=== PATIENT | female | born 1975 | race Caucasian/White ===

== ENCOUNTER 2017-11-25 10:33 | Outpatient (CLI) | payer MEDICAID ==
[~2017-11-25 10:33] MED LIST: ALBU18HF2 INH; CEPH500C5 PO; DICY10CA88 PO; DOCU-148 PO; FENO48TA15 PO; FEXO-124 PO; INSU100V9 SQ; LURA60TA2 PO; METF500T PO; MOME13HF3 INH; OMEP20TA23 PO; ONDA8TAB6 PO; PREG150C PO; SITA100T11 PO; SUMA25TA35 PO; SYN0.088T PO; TEMA15CA5 PO; TRAZ-146 PO
== END 2017-11-25 23:59 | disposition home or self-care (01) ==
LOC: RAD 10:33
PROVIDERS: ATTEND Physician Assistant Medical
DX: R55 Syncope and collapse (principal); J45.909 Unspecified asthma, uncomplicated; E11.9 Type 2 diabetes mellitus without complications; Z87.891 Personal history of nicotine dependence
CPT/HCPCS: 95816

== ENCOUNTER 2018-04-04 12:04 | Emergency (ER) | payer MEDICAID ==
[~2018-04-04] VITALS: Ht 162.6 cm; Wt 96.0 kg
[~2018-04-04 12:04] MED LIST changes: -TRAZ-146 PO; +TRAZ-219 PO
[2018-04-04 12:15] VITALS: BP 125/76
[2018-04-04] MEDS ORDERED: ketorolac trometh inj. 60 MG/2 ML VIAL IM ONE (12:30)
[2018-04-04] MEDS ORDERED: ONDA4TAB9 PO (13:21)
[2018-04-04] MEDS ORDERED: CYCL-1 PO (13:21)
[2018-04-04] MEDS ORDERED: ondansetron 4mg rapidly disintigrating tab PO ONE (13:25)
== END 2018-04-04 13:29 | disposition home or self-care (01) ==
LOC: ER 12:05
DX: S70.02XA Contusion of left hip, initial encounter (principal); G43.909 Migraine, unspecified, not intractable, without status migrainosus; J45.909 Unspecified asthma, uncomplicated; E11.9 Type 2 diabetes mellitus without complications; M79.7 Fibromyalgia; Z90.710 Acquired absence of both cervix and uterus; Z98.890 Other specified postprocedural states; Z88.8 Allergy status to other drugs, medicaments and biological substances; Z79.899 Other long term (current) drug therapy; Z79.4 Long term (current) use of insulin; W01.198A Fall on same level from slipping, tripping and stumbling with subsequent striking against other object, initial encounter; Y93.89 Activity, other specified; Y92.89 Other specified places as the place of occurrence of the external cause; Y99.9 Unspecified external cause status
CPT/HCPCS: 73521; 96372; 99283; J1885

== ENCOUNTER 2018-05-10 12:30 | Emergency (ER) | payer MEDICAID ==
[~2018-05-10] VITALS: Ht 162.6 cm; Wt 95.9 kg
[~2018-05-10 12:30] MED LIST changes: +CYCL-1 PO
[2018-05-10 12:58] LABS: BASOPHILS % (AUTO) 0.4 % (0-1); EOSINOPHILS # (AUTO) 0.3 X10'3 (0-0.9); EOSINOPHILS % (AUTO) 3.4 % (0-6); HEMATOCRIT 38.2 % (35.0-45.0); HEMOGLOBIN 12.9 g/dl (12.0-16.0); LYMPHOCYTES # (AUTO) 2.2 X10'3 (1.1-4.8); LYMPHOCYTES % (AUTO) 23.7 % (21-51); MEAN CORPUSCULAR HEMOGLOBIN 29.9 PG (27.0-31.0); MEAN CORPUSCULAR HGB CONC 33.6 % (33.0-36.5); MEAN CORPUSCULAR VOLUME 88.8 FL (78-98); MEAN PLATELET VOLUME 6.6 FL (7.4-10.4); MONOCYTES # (AUTO) 0.4 X10'3 (0-0.9); MONOCYTES % (AUTO) 4.7 % (2-12); NEUTROPHILS # (AUTO) 6.3 X10'3 (1.8-7.7); NEUTROPHILS % (AUTO) 67.8 % (42-75); PLATELET COUNT 383 X10'3 (140-440); RED BLOOD COUNT 4.31 X10'6 (4.20-5.60); RED CELL DISTRIBUTION WIDTH 14.4 % (11.5-14.5); WHITE BLOOD COUNT 9.3 X10'3 (4.5-11.0)
[2018-05-10 13:15] LABS: PARTIAL THROMBOPLASTIN TIME 27 SECONDS (22-32); PROTHROMBIN TIME 9.8 SECONDS (9.0-12.0)
[2018-05-10 13:17] LABS: ALBUMIN 2.9 G/DL (3.4-5.0); ANION GAP 10 (8-16); BILIRUBIN,TOTAL 0.3 MG/DL (0.1-1.0); BLOOD UREA NITROGEN 12 MG/DL (7-18); CALCIUM 8.3 MG/DL (8.5-10.1); CHLORIDE 103 MMOL/L (99-107); GLUCOSE 153 MG/DL (70-104); POTASSIUM 4.7 MMOL/L (3.5-5.1); SODIUM 139 MMOL/L (135-145); TOTAL CARBON DIOXIDE 25.6 MMOL/L (24-32); TOTAL PROTEIN 6.6 G/DL (6.4-8.2); eGFR 78 ML/MIN
[2018-05-10 13:18] LABS: ALANINE AMINOTRANSFERASE 41 U/L (12-78); ALBUMIN/GLOBULIN RATIO 0.8 (1.1-1.5); ALKALINE PHOSPHATASE 87 IU/L (46-116); ASPARTATE AMINO TRANSFERASE 14 U/L (10-37)
[2018-05-10] MEDS ORDERED: dexamethasone sod phosphate 10mg/ml inj IV STA (13:29)
[2018-05-10 14:11] VITALS: BP 127/72
== END 2018-05-10 14:14 | disposition home or self-care (01) ==
LOC: ER 12:31
DX: J40 Bronchitis, not specified as acute or chronic (principal); G43.909 Migraine, unspecified, not intractable, without status migrainosus; E11.9 Type 2 diabetes mellitus without complications; Z90.710 Acquired absence of both cervix and uterus; Z98.890 Other specified postprocedural states; F17.210 Nicotine dependence, cigarettes, uncomplicated; Z88.8 Allergy status to other drugs, medicaments and biological substances; Z79.2 Long term (current) use of antibiotics; Z79.84 Long term (current) use of oral hypoglycemic drugs; Z79.4 Long term (current) use of insulin; Z79.899 Other long term (current) drug therapy; Z60.2 Problems related to living alone
CPT/HCPCS: 36415; 71045; 80053; 83880; 84484; 85025; 85610; 85730; 93005; 96374; 99284; J1100

== ENCOUNTER 2018-08-31 14:32 | Emergency (ER) | payer MEDICAID ==
[~2018-08-31] VITALS: Ht 162.6 cm; Wt 89.0 kg
[~2018-08-31 14:32] MED LIST changes: -CEPH500C5 PO; +HYDR-4353 PO
[2018-08-31 14:35] VITALS: BP 121/71
[2018-08-31] MEDS ORDERED: METH4TAB81 PO (16:25)
== END 2018-08-31 16:28 | disposition home or self-care (01) ==
LOC: ER 14:33
DX: J98.01 Acute bronchospasm (principal); G43.909 Migraine, unspecified, not intractable, without status migrainosus; E11.9 Type 2 diabetes mellitus without complications; J45.909 Unspecified asthma, uncomplicated; Z90.710 Acquired absence of both cervix and uterus; Z98.890 Other specified postprocedural states; Z60.2 Problems related to living alone; Z88.8 Allergy status to other drugs, medicaments and biological substances; Z79.4 Long term (current) use of insulin; Z79.84 Long term (current) use of oral hypoglycemic drugs; Z79.899 Other long term (current) drug therapy
CPT/HCPCS: 99283

== ENCOUNTER 2020-12-14 20:54 | Emergency (ER) | payer MEDICAID ==
[~2020-12-14] VITALS: Ht 162.6 cm; Wt 100.0 kg
[~2020-12-14 20:54] MED LIST changes: -HYDR-4353 PO; +LURA60TA PO; -LURA60TA2 PO; +METH4TAB81 PO; -TRAZ-219 PO; +TRAZ-256 PO
[2020-12-14 20:58] VITALS: BP 149/89
== END 2020-12-14 23:54 | disposition home or self-care (01) ==
LOC: ER 20:54
DX: S66.812A Strain of other specified muscles, fascia and tendons at wrist and hand level, left hand, initial encounter (principal); G43.909 Migraine, unspecified, not intractable, without status migrainosus; J45.909 Unspecified asthma, uncomplicated; E11.9 Type 2 diabetes mellitus without complications; Z88.1 Allergy status to other antibiotic agents; Z88.5 Allergy status to narcotic agent; Z88.8 Allergy status to other drugs, medicaments and biological substances; Z79.899 Other long term (current) drug therapy; X58.XXXA Exposure to other specified factors, initial encounter; Y93.89 Activity, other specified; Y92.89 Other specified places as the place of occurrence of the external cause; Y99.8 Other external cause status
CPT/HCPCS: 29125; 73110; 99283

== ENCOUNTER 2021-10-04 16:00 | Emergency (ER) | payer MEDICAID ==
[~2021-10-04] VITALS: Ht 162.6 cm; Wt 93.2 kg
[~2021-10-04 16:00] MED LIST changes: -FEXO-124 PO; +FEXO-271 PO
[2021-10-04 16:18] VITALS: BP 89/56
== END 2021-10-04 17:26 | disposition home or self-care (01) ==
LOC: ER 16:00
DX: R07.89 Other chest pain (principal); G43.909 Migraine, unspecified, not intractable, without status migrainosus; J45.909 Unspecified asthma, uncomplicated; E11.9 Type 2 diabetes mellitus without complications; M79.7 Fibromyalgia; Z90.710 Acquired absence of both cervix and uterus; Z98.890 Other specified postprocedural states; Z79.899 Other long term (current) drug therapy; Z60.2 Problems related to living alone; Z88.1 Allergy status to other antibiotic agents; Z88.8 Allergy status to other drugs, medicaments and biological substances; Z79.4 Long term (current) use of insulin
CPT/HCPCS: 71045; 93005; 99283

== ENCOUNTER 2022-07-03 14:07 | Emergency (ER) | payer MEDICAID ==
[~2022-07-03] VITALS: Ht 165.1 cm; Wt 97.3 kg
[~2022-07-03 14:07] MED LIST changes: -MOME13HF3 INH; +MOME13HF8 INH
[2022-07-03 15:01] LABS: BASOPHILS # (AUTO) 0.1 X10'3 (0-0.2); EOSINOPHILS # (AUTO) 0.3 X10'3 (0-0.9); EOSINOPHILS % (AUTO) 2.6 % (0-6); HEMATOCRIT 40.9 % (35.0-45.0); HEMOGLOBIN 13.1 g/dl (12.0-16.0); LYMPHOCYTES # (AUTO) 2.9 X10'3 (1.1-4.8); LYMPHOCYTES % (AUTO) 21.6 % (21-51); MEAN CORPUSCULAR HEMOGLOBIN 28.3 PG (27.0-31.0); MEAN CORPUSCULAR HGB CONC 32.1 g/dL (33.0-36.5); MEAN CORPUSCULAR VOLUME 88.2 FL (78-98); MEAN PLATELET VOLUME 6.4 FL (7.4-10.4); MONOCYTES # (AUTO) 0.6 X10'3 (0-0.9); MONOCYTES % (AUTO) 4.5 % (2-12); NEUTROPHILS # (AUTO) 9.5 X10'3 (1.8-7.7); NEUTROPHILS % (AUTO) 70.3 % (42-75); PLATELET COUNT 514 X10'3 (140-440); RED BLOOD COUNT 4.64 X10'6 (4.20-5.60); RED CELL DISTRIBUTION WIDTH 15.7 % (11.5-14.5); WHITE BLOOD COUNT 13.5 X10'3 (4.5-11.0)
[2022-07-03 15:02] LABS: CLARITY,URINE CLEAR (Clear); COLOR,URINE YELLOW (Yellow); GLUCOSE, URINE NEGATIVE (Neg); KETONES,URINE NEGATIVE (Neg); LEUKOCYTE ESTERASE ,URINE NEGATIVE (Neg); NITRITES, URINE NEGATIVE (Neg); OCCULT BLOOD,URINE NEGATIVE (Neg); PH,URINE 5.5 (4.8-8.0); PROTEIN,URINE NEGATIVE (Neg); UROBILINOGEN,URINE 0.2 E.U/dL (0.2-1.0)
[2022-07-03 15:03] LABS: UA COLLECTION TYPE CLN CATCH MIDSTREAM; URINE HCG NEGATIVE (NEG)
[2022-07-03 15:30] LABS: ALANINE AMINOTRANSFERASE 12 U/L (12-78); ALBUMIN 2.7 G/DL (3.4-5.0); ALBUMIN/GLOBULIN RATIO 0.6 (1.1-1.5); ALKALINE PHOSPHATASE 142 IU/L (46-116); ANION GAP 8 (8-16); ASPARTATE AMINO TRANSFERASE 7 U/L (10-37); BILIRUBIN,TOTAL 0.3 MG/DL (0.1-1.0); BLOOD UREA NITROGEN 8 MG/DL (7-18); CALCIUM 9.3 MG/DL (8.5-10.1); CHLORIDE 103 MMOL/L (99-107); CREATININE 0.73 MG/DL (0.40-0.90); GLUCOSE 102 MG/DL (70-104); LIPASE 126 U/L (73-393); SODIUM 138 MMOL/L (135-145); TOTAL CARBON DIOXIDE 27.4 MMOL/L (24-32); TOTAL PROTEIN 7.1 G/DL (6.4-8.2); eGFR 85 ML/MIN
[2022-07-03] MEDS ORDERED: ondansetron/PF 4mg/2ml inj IV ONE (17:35)
[2022-07-03] MEDS ORDERED: ketorolac trometh. 30mg/ml inj. IV ONE (17:35)
[2022-07-03] MEDS ORDERED: normal saline 1000ML IV soln IVB ONE (17:35)
[2022-07-03] MEDS ORDERED: morphine 2 MG/ML inj. syringe IV ONE (17:35)
[2022-07-03] MEDS ORDERED: oxyCODONE/APAP 5-325mg tablet PO ONE (21:15)
[2022-07-03] MEDS ORDERED: HYDR-3965 PO (21:23)
[2022-07-03] MEDS ORDERED: ONDA4TAB12 PO (21:23)
[2022-07-03 22:23] VITALS: BP 99/73
== END 2022-07-03 22:26 | disposition home or self-care (01) ==
LOC: ER 14:08
DX: R10.11 Right upper quadrant pain (principal); R11.2 Nausea with vomiting, unspecified; G43.909 Migraine, unspecified, not intractable, without status migrainosus; J45.909 Unspecified asthma, uncomplicated; E11.9 Type 2 diabetes mellitus without complications; F17.210 Nicotine dependence, cigarettes, uncomplicated; M79.7 Fibromyalgia; Z90.710 Acquired absence of both cervix and uterus; Z98.890 Other specified postprocedural states; Z60.2 Problems related to living alone; Z88.1 Allergy status to other antibiotic agents; Z88.8 Allergy status to other drugs, medicaments and biological substances; Z79.84 Long term (current) use of oral hypoglycemic drugs; Z79.899 Other long term (current) drug therapy
CPT/HCPCS: 36415; 74176; 76700; 80053; 81003; 81025; 83690; 84145; 85025; 96361; 96374; 96375; 99285; J1885; J2270; J2405; J7030

== ENCOUNTER 2023-12-21 14:01 | Emergency (ER) | payer MEDICAID ==
[~2023-12-21] VITALS: Ht 162.6 cm; Wt 103.0 kg
[~2023-12-21 14:01] MED LIST changes: +ONDA-243 PO
[2023-12-21 14:46] LABS: BASOPHILS # (AUTO) 0.1 X10'3 (0-0.2); EOSINOPHILS # (AUTO) 0.2 X10'3 (0-0.9); EOSINOPHILS % (AUTO) 1.8 % (0-6); HEMATOCRIT 39.3 % (35.0-45.0); HEMOGLOBIN 12.8 g/dl (12.0-16.0); LYMPHOCYTES # (AUTO) 3.1 X10'3 (1.1-4.8); LYMPHOCYTES % (AUTO) 24.9 % (21-51); MEAN CORPUSCULAR HEMOGLOBIN 28.7 PG (27.0-31.0); MEAN CORPUSCULAR HGB CONC 32.7 g/dL (33.0-36.5); MEAN CORPUSCULAR VOLUME 87.9 FL (78-98); MEAN PLATELET VOLUME 6.5 FL (7.4-10.4); MONOCYTES # (AUTO) 0.5 X10'3 (0-0.9); MONOCYTES % (AUTO) 3.7 % (2-12); NEUTROPHILS # (AUTO) 8.5 X10'3 (1.8-7.7); NEUTROPHILS % (AUTO) 68.6 % (42-75); PLATELET COUNT 513 X10'3 (140-440); RED BLOOD COUNT 4.47 X10'6 (4.20-5.60); RED CELL DISTRIBUTION WIDTH 16.1 % (11.5-14.5); WHITE BLOOD COUNT 12.4 X10'3 (4.5-11.0)
[2023-12-21] MEDS: ketorolac trometh 15mg/ml vial 15 MG/ML ML IV ONE (15:05)
[2023-12-21 15:06] LABS: ALBUMIN 2.5 G/DL (3.4-5.0); ANION GAP 10 (8-16); BLOOD UREA NITROGEN 7 MG/DL (7-18); BUN/CREATININE RATIO 9.1 (10.0-20.0); CALCIUM 8.5 MG/DL (8.5-10.1); CHLORIDE 104 MMOL/L (99-107); CREATININE 0.77 MG/DL (0.40-0.90); GLUCOSE 86 MG/DL (70-104); MAGNESIUM 1.7 MG/DL (1.5-2.4); POTASSIUM 4.2 MMOL/L (3.5-5.1); PRO BRAIN NATRIURETIC PEPTIDE 46 PG/ML (0-125); SODIUM 136 MMOL/L (135-145); TOTAL CARBON DIOXIDE 22.2 MMOL/L (24-32); eCRCL 76 ML/MIN; eGFR 80 ML/MIN
[2023-12-21] MEDS ORDERED: LIDO700A32 TOP (15:46)
[2023-12-21] MEDS ORDERED: CYCL-394 PO (15:46)
[2023-12-21] MEDS: mag hydrox/Alum hydrox/simeth 30ml oral suspension PO ONE (16:16)
[2023-12-21] MEDS: LIDOcaine 2% Viscous 15ml cup MM ONE (16:16)
[2023-12-21 16:22] VITALS: BP 121/58; PULSE 108; RESP 12; TEMP 98.1; O2SAT 97
== END 2023-12-21 16:24 | disposition home or self-care (01) ==
LOC: ER 14:02
DX: R07.89 Other chest pain (principal); G43.909 Migraine, unspecified, not intractable, without status migrainosus; J45.909 Unspecified asthma, uncomplicated; E11.9 Type 2 diabetes mellitus without complications; Z88.1 Allergy status to other antibiotic agents; Z88.8 Allergy status to other drugs, medicaments and biological substances; Z79.899 Other long term (current) drug therapy; Z79.4 Long term (current) use of insulin; Z79.84 Long term (current) use of oral hypoglycemic drugs; Z90.710 Acquired absence of both cervix and uterus
CPT/HCPCS: 36415; 71045; 80048; 83735; 83880; 84484; 85025; 93005; 96374; 99285; J1885

== ENCOUNTER 2024-01-07 21:38 | Emergency (ER) | payer MEDICAID ==
[~2024-01-07] VITALS: Ht 162.6 cm; Wt 105.5 kg
[~2024-01-07 21:38] MED LIST changes: +CYCL-394 PO; +LIDO700A32 TOP
[2024-01-07 22:08] LABS: BASOPHILS # (AUTO) 0.2 X10'3 (0-0.2); BASOPHILS % (AUTO) 1.2 % (0-1); EOSINOPHILS # (AUTO) 0.2 X10'3 (0-0.9); EOSINOPHILS % (AUTO) 1.7 % (0-6); HEMATOCRIT 42.4 % (35.0-45.0); HEMOGLOBIN 13.7 g/dl (12.0-16.0); LYMPHOCYTES # (AUTO) 2.8 X10'3 (1.1-4.8); LYMPHOCYTES % (AUTO) 19.9 % (21-51); MEAN CORPUSCULAR HEMOGLOBIN 28.8 PG (27.0-31.0); MEAN CORPUSCULAR HGB CONC 32.3 g/dL (33.0-36.5); MEAN PLATELET VOLUME 6.1 FL (7.4-10.4); MONOCYTES # (AUTO) 0.6 X10'3 (0-0.9); MONOCYTES % (AUTO) 4.2 % (2-12); NEUTROPHILS # (AUTO) 10.3 X10'3 (1.8-7.7); PLATELET COUNT 446 X10'3 (140-440); RED BLOOD COUNT 4.77 X10'6 (4.20-5.60); RED CELL DISTRIBUTION WIDTH 15.8 % (11.5-14.5); WHITE BLOOD COUNT 14.1 X10'3 (4.5-11.0)
[2024-01-07 22:36] LABS: ALANINE AMINOTRANSFERASE 17 U/L (12-78); ALBUMIN 2.7 G/DL (3.4-5.0); ALBUMIN/GLOBULIN RATIO 0.6 (1.1-1.5); ALKALINE PHOSPHATASE 144 IU/L (46-116); ANION GAP 4 (8-16); ASPARTATE AMINO TRANSFERASE 11 U/L (10-37); BILIRUBIN,TOTAL 0.3 MG/DL (0.1-1.0); BLOOD UREA NITROGEN 8 MG/DL (7-18); BUN/CREATININE RATIO 9.1 (10.0-20.0); CALCIUM 8.8 MG/DL (8.5-10.1); CHLORIDE 104 MMOL/L (99-107); CREATININE 0.88 MG/DL (0.40-0.90); GLUCOSE 189 MG/DL (70-104); LIPASE 40 U/L (16-77); POTASSIUM 4.3 MMOL/L (3.5-5.1); SODIUM 137 MMOL/L (135-145); eCRCL 67 ML/MIN; eGFR 68 ML/MIN
[2024-01-08 01:17] LABS: BILIRUBIN,URINE NEGATIVE (Neg); CLARITY,URINE SLIGHTLY CLOUDY (Clear); COLOR,URINE YELLOW (Yellow); GLUCOSE, URINE NEGATIVE (Neg); KETONES,URINE NEGATIVE (Neg); LEUKOCYTE ESTERASE ,URINE NEGATIVE (Neg); OCCULT BLOOD,URINE NEGATIVE (Neg); PH,URINE 5.5 (4.8-8.0); PROTEIN,URINE NEGATIVE (Neg); UROBILINOGEN,URINE 0.2 E.U/dL (0.2-1.0)
[2024-01-08 01:18] LABS: URINE HCG NEGATIVE (NEG)
[2024-01-08 01:24] LABS: NITRITES, URINE NEGATIVE (Neg); UA COLLECTION TYPE CLN CATCH MIDSTREAM
[2024-01-08 01:32] LABS: HYALINE CASTS 0-3 /LPF (NEGATIVE); MUCUS STRANDS MANY /LPF (Neg); SQUAMOUS EPITHELIAL CELL,UR MANY /LPF (FEW)
[2024-01-08 01:33] LABS: BACTERIA,URINE 1+ /HPF (Neg); RBC,URINE NONE SEEN /HPF (0-2); WBC,URINE 0-4 /HPF (0-4)
[2024-01-08] MEDS ORDERED: OXYC-658 PO (01:54)
[2024-01-08] MEDS ORDERED: ONDA-245 PO (01:54)
[2024-01-08] MEDS: ondansetron 4mg rapidly disintigrating tab PO ONE (01:58)
[2024-01-08] MEDS: oxyCODONE IR 5mg (immed. release) tablet PO ONE (01:59)
[2024-01-08] MEDS: ibuprofen tablet 400 MG TABLET PO ONE (02:00)
--- NOTE | 2024-01-08 02:00 | NUR ---
REYNA GRANADOS ASSESSED PT AT BEDSIDE.
[2024-01-08 02:28] VITALS: BP 95/51; PULSE 90; RESP 16; TEMP 98.1; O2SAT 93
== END 2024-01-08 02:33 | disposition home or self-care (01) ==
LOC: ER 21:39
DX: R10.11 Right upper quadrant pain (principal); G43.909 Migraine, unspecified, not intractable, without status migrainosus; J45.909 Unspecified asthma, uncomplicated; E11.9 Type 2 diabetes mellitus without complications; Z88.1 Allergy status to other antibiotic agents; Z88.8 Allergy status to other drugs, medicaments and biological substances; Z79.899 Other long term (current) drug therapy; Z79.4 Long term (current) use of insulin; Z90.710 Acquired absence of both cervix and uterus
CPT/HCPCS: 36415; 74176; 76700; 80053; 81001; 81025; 83690; 85025; 99284

== ENCOUNTER 2024-01-25 17:32 | Emergency (ER) | payer MEDICAID ==
[~2024-01-25] VITALS: Ht 162.6 cm; Wt 108.0 kg
[~2024-01-25 17:32] MED LIST changes: -CYCL-394 PO; +ONDA-245 PO; +OXYC-658 PO
[2024-01-25 18:00] LABS: BILIRUBIN,URINE NEGATIVE (Neg); CLARITY,URINE CLOUDY (Clear); COLOR,URINE YELLOW (Yellow); GLUCOSE, URINE >=1000 mg/dl (Neg); KETONES,URINE NEGATIVE (Neg); LEUKOCYTE ESTERASE ,URINE NEGATIVE (Neg); NITRITES, URINE NEGATIVE (Neg); OCCULT BLOOD,URINE NEGATIVE (Neg); PROTEIN,URINE NEGATIVE (Neg); UROBILINOGEN,URINE 0.2 E.U/dL (0.2-1.0)
[2024-01-25 18:01] LABS: BASOPHILS # (AUTO) 0.1 X10'3 (0-0.2); BASOPHILS % (AUTO) 0.8 % (0-1); EOSINOPHILS # (AUTO) 0.2 X10'3 (0-0.9); EOSINOPHILS % (AUTO) 0.9 % (0-6); LYMPHOCYTES # (AUTO) 2.3 X10'3 (1.1-4.8); LYMPHOCYTES % (AUTO) 13.4 % (21-51); MEAN CORPUSCULAR HEMOGLOBIN 29.8 PG (27.0-31.0); MEAN CORPUSCULAR HGB CONC 33.3 g/dL (33.0-36.5); MEAN CORPUSCULAR VOLUME 89.3 FL (78-98); MEAN PLATELET VOLUME 6.3 FL (7.4-10.4); MONOCYTES # (AUTO) 0.7 X10'3 (0-0.9); MONOCYTES % (AUTO) 3.9 % (2-12); PLATELET COUNT 540 X10'3 (140-440); WHITE BLOOD COUNT 17.3 X10'3 (4.5-11.0)
[2024-01-25 18:08] LABS: ALANINE AMINOTRANSFERASE 23 U/L (12-78); ALBUMIN 2.8 G/DL (3.4-5.0); ALBUMIN/GLOBULIN RATIO 0.6 (1.1-1.5); ALKALINE PHOSPHATASE 193 IU/L (46-116); ANION GAP 6 (8-16); ASPARTATE AMINO TRANSFERASE 11 U/L (10-37); BILIRUBIN,TOTAL 0.3 MG/DL (0.1-1.0); BLOOD UREA NITROGEN 8 MG/DL (7-18); BUN/CREATININE RATIO 7.7 (10.0-20.0); CALCIUM 8.3 MG/DL (8.5-10.1); CHLORIDE 101 MMOL/L (99-107); CREATININE 1.04 MG/DL (0.40-0.90); GLUCOSE 232 MG/DL (70-104); LIPASE 36 U/L (16-77); POTASSIUM 3.9 MMOL/L (3.5-5.1); SODIUM 135 MMOL/L (135-145); TOTAL CARBON DIOXIDE 28.1 MMOL/L (24-32); TOTAL PROTEIN 7.3 G/DL (6.4-8.2); eCRCL 56 ML/MIN; eGFR 56 ML/MIN
[2024-01-25 18:09] LABS: SQUAMOUS EPITHELIAL CELL,UR MANY /LPF (FEW); UA COLLECTION TYPE CLN CATCH MIDSTREAM; WBC,URINE 0-4 /HPF (0-4)
[2024-01-25 18:12] LABS: BACTERIA,URINE FEW /HPF (Neg)
[2024-01-25 18:13] LABS: RBC,URINE 0-2 /HPF (0-2); YEAST MANY /HPF (NEGATIVE)
[2024-01-25] MEDS: normal saline 1000ml 1,000 ML IV ONE (20:28)
[2024-01-25 22:52] VITALS: BP 112/69; PULSE 97; RESP 16; TEMP 98.6; O2SAT 97
== END 2024-01-25 22:54 | disposition home or self-care (01) ==
LOC: ER 17:33
DX: E11.65 Type 2 diabetes mellitus with hyperglycemia (principal); R10.84 Generalized abdominal pain; G43.909 Migraine, unspecified, not intractable, without status migrainosus; J45.909 Unspecified asthma, uncomplicated; M79.7 Fibromyalgia; Z88.1 Allergy status to other antibiotic agents; Z88.8 Allergy status to other drugs, medicaments and biological substances; Z79.899 Other long term (current) drug therapy; Z79.4 Long term (current) use of insulin; Z79.84 Long term (current) use of oral hypoglycemic drugs; Z79.52 Long term (current) use of systemic steroids; Z90.710 Acquired absence of both cervix and uterus; Z98.890 Other specified postprocedural states; Z60.2 Problems related to living alone
CPT/HCPCS: 36415; 80053; 81001; 82948; 83690; 85025; 96360; 99283; J7030

== ENCOUNTER 2024-10-16 13:50 | Inpatient (IN) | payer MEDICAID ==
[~2024-10-16] VITALS: Ht 162.6 cm; Wt 109.1 kg
[~2024-10-16 13:50] MED LIST changes: +LIDO-52 TOP; -LIDO700A32 TOP; -OXYC-658 PO
--- NOTE | 2024-10-16 13:57 | ELECTROCARDIOGRAPH REPORT ---
[facility] Test Date: 2024-10-16 Test Time: 13:55:32 Pat Name: BERNADETTE BLAND Department: EMERGENCY ROOM Room: Gender: F [employer] [facility] Consultant: JAVED : 1975 Requested By: LUBA MALDONADO Order Number: [id number] Reading MD: Measurements Intervals [place] Rate: 81 P: -2 AR: 129 QRS: 18 QRSD: 99 T: 28 QT: 401 QTc: 466 Interpretive Statements Sinus rhythm Please click the below link to view image of tracing.
--- NOTE | 2024-10-16 14:28 | RADIOLOGY REPORT ---
DI CHEST,SINGLE VIEW, HISTORY: CP COMPARISON: DI CHEST,SINGLE VIEW on DOS: 12/21/23, CHEST,SINGLE VIEW on DOS: 10/04/21 DI CHEST,SINGLE VIEW on DOS: 12/21/23, CHEST,SINGLE VIEW on DOS: 10/04/21 TECHNICAL DATA: 1 view of the chest was obtained. FINDINGS: Lines and tubes: None Cardiomediastinal silhouette: normal Pulmonary vasculature: normal Lung expansion: normal Lung airspace: normal Lung interstitium: normal Pleura: normal Pneumothorax: no Bones: Unremarkable Other: no IMPRESSION: No acute intrathoracic abnormality.
--- NOTE | 2024-10-16 14:33 | Physician Documentation ---
History of Present Illness General Chief Complaint: Chest Pain Stated Complaint: CP Time Seen by MD: 14:13 Primary Medical Doctor: [facility] Mode of Arrival: EMS History of Present Illness Initial Comments Patient is a 49-year-old female with no significant past medical history who presents with a chest pain that began around noon today. The patient reports that she was lying on the couch watching television. The pain is central but sometimes radiates into her arms. She has no shortness of breath. The patient quit smoking about a month ago. Medication Reconciliation Allergies: Coded Allergies: cephalexin (Verified Allergy, Severe, rash, 01/25/24) chlorhexidine (Verified Allergy, Unknown, 01/25/24) promethazine (Verified Allergy, Unknown, 01/25/24) Uncoded Allergies: CLINDAMYCIN (Allergy, Severe, 07/03/22) throat swelling Scheduled Albuterol Sulfate (Ventolin Hfa), 2 PUFFS INH Q4HPRN, (Reported) Cyclobenzaprine* (Cyclobenzaprine*), 1 TAB PO TID Docusate Sodium (Colace), 1 TAB PO DAILY, (Reported) Fenofibrate Nanocrystallized* (Tricor*), 200 MG PO DAILY, (Reported) Fexofenadine Hcl* (Domonique*), 1 TABLET PO DAILY, (Reported) Insulin Glargine,Hum.rec.anlog (Lantus), 80 UNIT SQ HS, (Reported) Levothyroxine Sodium* (Synthroid*), 50 MCG PO DAILY, (Reported) Lidocaine (Lidoderm), 1 PATCH TOP DAILY Lurasidone HCl (Latuda), 1 TAB PO DAILY, (Reported) Metformin Hcl* (Glucophage*), 2 TAB PO BIDAC, (Reported) Methylprednisolone (Medrol Dosepak), 4 MG PO DAILY Mometasone Furoate (Asmanex Hfa), 2 PUFFS INH BID, (Reported) Omeprazole Magnesium (Prilosec Otc), 20 MG PO DAILY Ondansetron 8mg ODT (Ondansetron Odt), 1 TAB PO Q6H Pregabalin (Lyrica), 1 CAP PO TID, (Reported) Sitagliptin Phosphate (Januvia), 1 TAB PO DAILY, (Reported) Temazepam (Restoril), 30 MG PO HS, (Reported) Trazodone HCl (Trazodone HCl), 2 TAB PO HS, (Reported) Scheduled PRN Dicyclomine Hcl* (Bentyl*), 2 CAP PO Q6H PRN for ABDOMINAL PAIN, (Reported) ONDANSETRON ODT 4mg tablet (Ondansetron Odt), 1 TABLET PO Q6H PRN for nausea/vomiting Ondansetron Hcl (Zofran), 1 TAB PO Q8H PRN for nausea/vomiting, (Reported) Sumatriptan Succinate* (Imitrex Tab*), 4 TAB PO PRN PRN for headache, (Reported) Past Medical History Past Medical History: Migraine, Asthma, Diabetes, Fibromyalgia Past Surgical History: abdominal surgery, hysterectomy, orthopedic surgeries, other Other Past Surgical History: Breast Reduction Smoking: Cigarettes Alcohol Use: Rarely Drug Use: none Lives with: Alone Lives In: Home Review of Systems ROS Constitutional: Denies chills, fatigue, fever, weight gain or weight loss. HEENT: Denies hearing loss, sinus pressure or visual changes. Respiratory: Denies cough, shortness of breath or wheezing. Cardiovascular: Central chest pain not associated with movement. Gastrointestinal: Denies abdominal pain, blood in stool, constipation, diarrhea, heartburn, loss of appetite, nausea or vomiting. Genitourinary: Denies painful urination (dysuria), excessive amount of urine (polyuria) or urinary frequency. Metabolic/Endocrine: Denies cold intolerance, heat intolerance, excessive thirst (polydipsia) or excessive hunger (polyphagia). Neurological: Denies dizziness, extremity numbness, extremity weakness, headaches, seizures or tremors. Psychiatric: Denies anxiety or depression. Integumentary: Denies breast discharge, breast lump, hives, mole change(s), rash or skin lesion. Musculoskeletal: Denies back pain, joint pain, joint swelling or neck pain. Hematologic: Denies easily bleeding, easily bruises, lymphedema or issues with blood clots. Immunologic: Denies food allergies or seasonal allergies. Physical Exam Physical Exam Vital Signs: Temperature: 98.5, Heart Rate: 85, Respiratory Rate: 28, BP: 97/51, Pulse Oximetry: 96, Weight: 109.090 Oxygen Flow Rate: 0 Physical Exam Physical Exam Vitals and nursing note reviewed. Constitutional: General: Patient is awake, alert, oriented x 4 in no acute distress and well appearing. Speech is clear and lucid. Appearance: Overweight. Patient is not ill-appearing, toxic-appearing or diaphoretic. HENT: Head: Normocephalic and atraumatic. Mouth/Throat: Mouth: Mucous membranes are moist. Pharynx: Oropharynx is clear. Eyes: General: No scleral icterus. Extraocular Movements: Extraocular movements intact. Pupils: Pupils are equal, round, and reactive to light. Cardiovascular: Rate and Rhythm: Normal rate and regular rhythm. Heart sounds: No murmur heard. Pulmonary: Effort: No respiratory distress. Breath sounds: No wheezing, rhonchi or rales. Abdominal: General: There is no distension. Palpations: There is no fluid wave, hepatomegaly or mass. Tenderness: There is no abdominal tenderness. There is no guarding. Musculoskeletal: General: No swelling or deformity. Skin: Coloration: Skin is not jaundiced. Findings: No erythema or rash. Neurological: Mental Status: Patient is alert. Progress Results/Orders Results/Orders Orders - LUBA MALDONADO MD Chest,Single View (10/16/24 13:54) Monitor (10/16/24 13:54) Saline Lock (10/16/24 13:54) Oxygen (10/16/24 13:54) Hs Troponin I W Calculations (10/16/24 15:54) Hs Troponin I W Calculations (10/16/24 16:54) Nitroglycerin Sublingual Tab (Nitrostat (10/16/24 15:05) Page Hospitalist (10/16/24 15:07) Completed Orders - LUBA MALDONADO MD Chest,Single View (10/16/24 13:54) Cbc/Diff (10/16/24 13:54) BMP (10/16/24 13:54) PBNP (10/16/24 13:54) Electrocardiogram (10/16/24 13:54) Hs Troponin I W Calculations (10/16/24 13:54) Ua W/Microscopic, Cult If Ind (10/16/24 14:43) Vital Signs 10/16/24 10/16/24 10/16/24 13:54 14:05 15:05 Temp 98.5 Pulse 85 85 Resp 16 28 17 B/P (MAP) 97/51 114/74 (87) Pulse Ox 96 95 O2 Flow Rate 0 0 Laboratory Tests Test 10/16/24 14:03 10/16/24 14:08 10/16/24 14:43 White Blood Count 9.6 Red Blood Count 4.34 Hemoglobin 13.1 Hematocrit 38.8 Mean Corpuscular Volume 89.4 Mean Corpuscular Hemoglobin 30.2 Mean Corpuscular Hemoglobin Concent 33.8 Red Cell Distribution Width 15.1 H Platelet Count 423 Mean Platelet Volume 6.8 L Neutrophils (%) (Auto) 69.3 Lymphocytes (%) (Auto) 23.0 Monocytes (%) (Auto) 4.2 Eosinophils (%) (Auto) 2.8 Basophils (%) (Auto) 0.7 Neutrophils # (Auto) 6.7 Lymphocytes # (Auto) 2.2 Monocytes # (Auto) 0.4 Eosinophils # (Auto) 0.3 Basophils # (Auto) 0.1 CBC Comment Sodium Level 138 Potassium Level 4.4 Chloride Level 103 Carbon Dioxide Level 22.9 L Anion Gap 12 Blood Urea Nitrogen 13 Creatinine 0.95 H Estimated GFR/1.73 m2 62 BUN/Creatinine Ratio 13.7 Glucose Level 262 H Calcium Level 8.6 Pro-B-Type Natriuretic Peptide < 30 Albumin 2.8 L Chemistry Comments Troponin I High Sensitivity 4 Urine Specimen Description Cln catch midstream Urine Color Sameera Urine Clarity Clear Urine pH Urine Specific [place]ham Urine Protein Urine Glucose (UA) Urine Ketones Urine Occult Blood Urine Nitrite Urine Bilirubin Urine Urobilinogen Urine Leukocyte Esterase Urine RBC None seen Urine WBC 0-4 Urine Squamous Epithelial Cells Moderate Urine Bacteria 1+ Urine Mucus None seen Urine Culture Indicated Not ind Volume Urine Centrifuged 10 ml Urine Comment See note Departure Disposition: 09 ADMITTED INPATIENT Admitted to Inpatient Unit: to hospitalist Admission Level of Care: Med/Surg with Tele Impression: Primary Impression: Chest pain Condition: Stable Referrals: NO PRIMARY CARE PROVIDER (PCP) Signature Scribe Signature: . Attestation: . LUBA MALDONADO MD Oct 16, 2024 14:33
[2024-10-16 14:40] LABS: BASOPHILS # (AUTO) 0.1 X10'3 (0-0.2); BASOPHILS % (AUTO) 0.7 % (0-1); EOSINOPHILS # (AUTO) 0.3 X10'3 (0-0.9); EOSINOPHILS % (AUTO) 2.8 % (0-6); HEMATOCRIT 38.8 % (35.0-45.0); HEMOGLOBIN 13.1 g/dl (12.0-16.0); LYMPHOCYTES # (AUTO) 2.2 X10'3 (1.1-4.8); MEAN CORPUSCULAR HEMOGLOBIN 30.2 PG (27.0-31.0); MEAN CORPUSCULAR HGB CONC 33.8 g/dL (33.0-36.5); MEAN CORPUSCULAR VOLUME 89.4 FL (78-98); MEAN PLATELET VOLUME 6.8 FL (7.4-10.4); MONOCYTES # (AUTO) 0.4 X10'3 (0-0.9); MONOCYTES % (AUTO) 4.2 % (2-12); NEUTROPHILS # (AUTO) 6.7 X10'3 (1.8-7.7); NEUTROPHILS % (AUTO) 69.3 % (42-75); PLATELET COUNT 423 X10'3 (140-440); RED BLOOD COUNT 4.34 X10'6 (4.20-5.60); RED CELL DISTRIBUTION WIDTH 15.1 % (11.5-14.5); WHITE BLOOD COUNT 9.6 X10'3 (4.5-11.0)
[2024-10-16 14:47] LABS: ALBUMIN 2.8 G/DL (3.4-5.0); ANION GAP 12 (8-16); BLOOD UREA NITROGEN 13 MG/DL (7-18); BUN/CREATININE RATIO 13.7 (10.0-20.0); CALCIUM 8.6 MG/DL (8.5-10.1); CHLORIDE 103 MMOL/L (99-107); CREATININE 0.95 MG/DL (0.40-0.90); GLUCOSE 262 MG/DL (70-104); POTASSIUM 4.4 MMOL/L (3.5-5.1); PRO BRAIN NATRIURETIC PEPTIDE < 30 PG/ML (0-125); SODIUM 138 MMOL/L (135-145); TOTAL CARBON DIOXIDE 22.9 MMOL/L (24-32); eCRCL 61 ML/MIN; eGFR 62 ML/MIN
[2024-10-16 14:53] LABS: CLARITY,URINE CLEAR (Clear); COLOR,URINE AMBER (Yellow)
[2024-10-16 14:55] LABS: UA COLLECTION TYPE CLN CATCH MIDSTREAM
[2024-10-16 15:00] LABS: BACTERIA,URINE 1+ /HPF (Neg); RBC,URINE NONE SEEN /HPF (0-2); WBC,URINE 0-4 /HPF (0-4)
[2024-10-16 15:01] LABS: MUCUS STRANDS NONE SEEN /LPF (Neg); SQUAMOUS EPITHELIAL CELL,UR MODERATE /LPF (FEW)
[2024-10-16] MEDS ORDERED: nitroGLYCERIN 0.4mg SUBLingual tab SL PRN ×2 (15:05→15:30)
[2024-10-16] MEDS ORDERED: HYDROcodone/acetaminophen 10/325mg tab PO PRN (15:30)
[2024-10-16] MEDS ORDERED: dextrose 50%-water 50ml dispensing syringe IV PRN ×2 (15:30)
[2024-10-16] MEDS ORDERED: ondansetron/PF 4mg/2ml inj IV PRN (15:30)
[2024-10-16] MEDS ORDERED: magnesium hydroxide 30ml (MOM) UD suspension PO PRN (15:30)
[2024-10-16] MEDS ORDERED: aminophylline 500mg/20ml vial IV PRN (15:30)
[2024-10-16] MEDS ORDERED: regadenoson 0.4mg/5ml syringe IV PRN (15:30)
[2024-10-16] MEDS ORDERED: potassium Cl 40MEQ/1/2NS 520ml 520 ML IV PRN (15:30)
[2024-10-16] MEDS ORDERED: glucagon, human recombinant 1mg kit SUBCUT PRN (15:30)
[2024-10-16] MEDS ORDERED: magnesium sulf-water 2g/50mL 50 ML IV PRN (15:30)
[2024-10-16] MEDS ORDERED: mag hydrox/Alum hydrox/simeth 30ml oral suspension PO PRN (15:30)
[2024-10-16] MEDS ORDERED: DEXTROSE 15 GM of carb/4 tabs (each vial/BOTTLE has 4 tablets) PO PRN ×2 (15:30)
[2024-10-16] MEDS ORDERED: magnesium sulf-water 4G/100mL 100 ML IV PRN (15:30)
[2024-10-16] MEDS ORDERED: HYDROcodone/acetaminophen 5mg/325mg tablet PO PRN (15:30)
[2024-10-16] MEDS ORDERED: metoprolol tartrate 1mg/ml inj IV PRN (15:30)
[2024-10-16] MEDS ORDERED: acetaminophen 325mg tablet PO PRN ×2 (15:30)
[2024-10-16] MEDS ORDERED: potassium Cl 20 mEq SR tablet PO PRN ×2 (15:30)
[2024-10-16] MEDS: PERFLUTREN PROTEIN-A MICROSPHR (Optison) 0.22 MG/ML 3ML VIAL IV ONE (15:57)
[2024-10-16 16:21] LABS: HEMOGLOBIN A1C 10.7 % (4.5-6.2)
[2024-10-16] MEDS ORDERED: INSU200I4 SQ (16:24)
[2024-10-16] MEDS ORDERED: GLUC3SPR5 (16:24)
[2024-10-16] MEDS ORDERED: ATOR-2 PO (16:24)
[2024-10-16] MEDS ORDERED: FERR325T34 (16:24)
[2024-10-16] MEDS ORDERED: FLUT1BLS16 INH (16:24)
[2024-10-16] MEDS ORDERED: INSU100I39 SQ (16:24)
[2024-10-16] MEDS ORDERED: MONT-40 PO (16:24)
[2024-10-16] MEDS ORDERED: DULO60CA65 PO (16:24)
[2024-10-16] MEDS ORDERED: PROG200C11 PO (16:24)
[2024-10-16] MEDS ORDERED: MEDR5TAB4 PO (16:24)
[2024-10-16] MEDS ORDERED: ATOG60TA PO (16:24)
[2024-10-16] MEDS ORDERED: LISI10TA27 PO (16:24)
[2024-10-16] MEDS ORDERED: OLAN5TAB75 (16:24)
[2024-10-16] MEDS ORDERED: IBUP-1986 PO (16:24)
[2024-10-16] MEDS ORDERED: RIZA10TA28 PO (16:24)
[2024-10-16] MEDS ORDERED: DOXY1TAB3 PO (16:24)
[2024-10-16] MEDS ORDERED: FLUTICASONE (16:24)
[2024-10-16] MEDS ORDERED: DOXY-224 PO (16:24)
[2024-10-16] MEDS: INSULIN LISPRO 100 UNIT/ML INSULN.PEN MULTI-DOSE SQ SCH (17:00)
--- NOTE | 2024-10-16 17:32 | HISTORY AND PHYSICAL ---
History & Physical Providers to CC ~ History of Present Illness Reason for Admit\Complaint: Chest pain evaluate for mi History of Present Illness This is a 49-year-old female who presents to ED with chief complaint of chest pain that began around noon. Patient was sitting on her couch watching TV and was planning to go to work when she developed chest pain that was substernal as 8/10 and radiating to her upper extremities bilaterally with paresthesias in her left hand. The patient is mildly short of breath with the chest pain denies any diaphoresis is nauseated. Note the patient had coffee a proximally 2 hours prior to onset of the chest pain-high sensitivity troponins x2 are at a level of for which greater than 50 the cutoff for normal sensitivity troponin. EKG was negative for any ST segment abnormalities questionable bundle-branch block in the anterior leads Echocardiogram is ordered and Lexiscan stress test- admitted to the ortho floor on electronic device monitor. Allergies: Coded Allergies: cephalexin (Verified Allergy, Severe, rash, 01/25/24) chlorhexidine (Verified Allergy, Unknown, 01/25/24) promethazine (Verified Allergy, Unknown, 01/25/24) Uncoded Allergies: CLINDAMYCIN (Allergy, Severe, 07/03/22) throat swelling Home Medications Home Medications Active Lidoderm (Lidocaine) 5 % Adh..patch 1 Patch TOP DAILY 30 Days may wear up to 12 hours Ondansetron Odt (Ondansetron HCl) 4 Mg Tab.rapdis 1 Tablet PO Q6H PRN Cyclobenzaprine* (Cyclobenzaprine HCl) 10 Mg Tablet 1 Tab PO TID Prilosec Otc (Omeprazole Magnesium) 20 Mg Tablet.dr 20 Mg PO DAILY Reported Baqsimi (Glucagon) 3 Mg/Actuation Beulah Admelog Solostar (Insulin Lispro) 100 Unit/Ml Insuln.pen SQ Tresiba Flextouch U-200 (Insulin Degludec) 200 Unit/Ml (3 Ml) Insuln.pen SQ Rizatriptan (Rizatriptan Benzoate) 10 Mg Tablet 1 Tab PO PRN Ibuprofen 800 Mg Tablet 1 Tab PO TID Carlos Alberto Carbajal 10-10 mg Tablet (Doxylamine/Pyridoxine HCl) 10 Mg-10 Mg Tablet.dr 2 Tab PO HS Doxycycline Hyclate 100 Mg Capsule 1 Cap PO DAILY Olanzapine 5 Mg Tablet Lisinopril 10 Mg Tablet 1 Tab PO DAILY Montelukast Sodium 10 Mg Tablet 1 Tab PO Progesterone (Progesterone,Micronized) 200 Mg Capsule 1 Cap PO HS Atorvastatin Calcium 80 Mg Tablet 1 Tab PO DAILY [Fluticasone] Spr 50 Mcg Trelegy Ellipta 200-62.5-25 (Fluticasone/Umeclidin/Vilanter) 200-62.5 Blst.w.dev 1 Puffs INH DAILY Qulipta (Atogepant) 60 Mg Tablet 1 Tab PO DAILY Medroxyprogesterone Acetate (Medroxyprogesterone Acet) 5 Mg Tablet 1 Tab PO DAILY Ferrous Sulfate 325 Mg (65 Mg Iron) Tablet Duloxetine HCl 60 Mg Capsule.dr 2 Cap PO DAILY Bentyl* (Dicyclomine HCl) 10 Mg Capsule 2 Cap PO Q6H PRN Lyrica (Pregabalin) 150 Mg Capsule 1 Cap PO TID Domonique* (Fexofenadine HCl) 180 Mg Tablet 1 Tablet PO DAILY Januvia (Sitagliptin Phosphate) 100 Mg Tablet 1 Tab PO DAILY Synthroid* (Levothyroxine Sodium) 88 Mcg Tablet 50 Mcg PO DAILY Ventolin Hfa (Albuterol Sulfate) 18 Gm Hfa.aer.ad 2 Puffs INH Q4HPRN Colace (Docusate Sodium) 100 Mg Capsule 1 Tab PO DAILY Past Medical History Past Medical History GERD, hyperlipidemia, [id number] diabetes mellitus, diabetic gastroparesis (the patient is scheduled for surgery once she obtains cardiac clearance), fibromyalgia, hypothyroidism, asthma, migraine headaches Past Surgical History Surgical History Comment Breast reduction, ankle surgery for ankle instability, bilateral knee arthroplasty, lumbar spine surgery, left-sided oophorectomy for ovarian cyst Family History Family History: FH: diabetes mellitus MOTHER Maternal grandmother maternal grandfatheR FH: heart disease Maternal grandmother maternal grandfatheR Past Social History Social History Comment Quit smoking cigarettes one month ago, rare alcohol intake, occasional marijuana usage, denies any illicit drug use. Full code status ROS ROS Except for positives in the HPI the rest of the 14 point review systems is negative Exam Vitals: Vital Signs Date Time Temp Pulse Resp B/P (MAP) Pulse Ox O2 Delivery O2 Flow Rate FiO2 10/16/24 15:05 85 17 114/74 (87) 95 0 10/16/24 13:54 98.5 General: Gen. No acute distress alert and oriented 4 Lungs clear to ascultation bilaterally, no wheezes rales or rhonchi appreciated Heart normal sinus rhythm no murmurs rubs or clicks noted Abdomen soft pkgp-yd-drubfzdz epigastric tenderness bowel sounds are normoactive Lower extremities no clubbing cyanosis, nor edema appreciated bilaterally Diagnostic Data Last Recorded Lab Results: 10/16/24 1403 10/16/24 1403 Advance Care Planning Advanced Care plannin - 30 Minutes Problems: (1) Chest pain Status: Acute Additional Plan # chest pain evaluate for ME Awaiting echocardiogram Lexiscan stress test is ordered for the a.m. Serial troponins 1st who of which are well within normal limits Admitted to ortho floor on a electronic device monitor # vbu-tshhbac-bopyejnrw diabetes mellitus Hyper and hypoglycemic protocol # hypothyroidism awaiting med reconciliation # GERD Protonix #HLD Awaiting med reconciliation # diabetic gastroparesis Anticipating surgery in the near future # DVT prophylaxis SCDs and SQ Lovenox I spent a total of 17 minutes on reviewing various resuscitative measures/ ACP with the patient at the time of admission. The patient has decided on full code status Date of Service: Oct 16, 2024 Billing Provider: ANTONI BOBO DO Common Visit Codes: [id number] INP/OBS CARE (HIGH) Secondary Visit Codes: [id number]-[id number] CARE PLAN 30 MINUTES ANTONI BOBO DO Oct 16, 2024 17:32
[2024-10-16 19:02] VITALS: BP 112/46; PULSE 83; RESP 20; TEMP 97.9; O2SAT 99
[2024-10-16] MEDS: K and/or MAG REPLACEMENT MC SCH (20:00)
[2024-10-16] MEDS: enoxaparin 40mg/0.4ml syringe SQ SCH (21:10)
[2024-10-16] MEDS: docusate sod 100mg capsule PO SCH (21:10)
[2024-10-16 22:00] VITALS: BP 104/62; PULSE 92; RESP 16; TEMP 98.5; O2SAT 94
[2024-10-16] MEDS: OLANZapine 2.5MG tablet PO SCH (22:08)
[2024-10-17 06:00] VITALS: BP 90/43; PULSE 85; RESP 16; TEMP 97.3; O2SAT 94
[2024-10-17 06:21] LABS: BASOPHILS # (AUTO) 0.1 X10'3 (0-0.2); BASOPHILS % (AUTO) 0.7 % (0-1); EOSINOPHILS # (AUTO) 0.4 X10'3 (0-0.9); EOSINOPHILS % (AUTO) 3.8 % (0-6); HEMATOCRIT 37.1 % (35.0-45.0); HEMOGLOBIN 12.5 g/dl (12.0-16.0); LYMPHOCYTES # (AUTO) 2.5 X10'3 (1.1-4.8); LYMPHOCYTES % (AUTO) 25.5 % (21-51); MEAN CORPUSCULAR HEMOGLOBIN 30.4 PG (27.0-31.0); MEAN CORPUSCULAR HGB CONC 33.8 g/dL (33.0-36.5); MEAN CORPUSCULAR VOLUME 89.9 FL (78-98); MEAN PLATELET VOLUME 6.6 FL (7.4-10.4); MONOCYTES # (AUTO) 0.5 X10'3 (0-0.9); MONOCYTES % (AUTO) 5.6 % (2-12); NEUTROPHILS # (AUTO) 6.3 X10'3 (1.8-7.7); NEUTROPHILS % (AUTO) 64.4 % (42-75); PLATELET COUNT 407 X10'3 (140-440); RED BLOOD COUNT 4.12 X10'6 (4.20-5.60); RED CELL DISTRIBUTION WIDTH 15.1 % (11.5-14.5); WHITE BLOOD COUNT 9.7 X10'3 (4.5-11.0)
[2024-10-17 06:55] LABS: ALANINE AMINOTRANSFERASE 29 U/L (12-78); ALBUMIN 2.6 G/DL (3.4-5.0); ALBUMIN/GLOBULIN RATIO 0.7 (1.1-1.5); ALKALINE PHOSPHATASE 136 IU/L (46-116); ANION GAP 6 (8-16); ASPARTATE AMINO TRANSFERASE 23 U/L (10-37); BILIRUBIN,TOTAL 0.5 MG/DL (0.1-1.0); BLOOD UREA NITROGEN 10 MG/DL (7-18); BUN/CREATININE RATIO 12.3 (10.0-20.0); CALCIUM 8.6 MG/DL (8.5-10.1); CHLORIDE 108 MMOL/L (99-107); CREATININE 0.81 MG/DL (0.40-0.90); GLUCOSE 109 MG/DL (70-104); MAGNESIUM 2.1 MG/DL (1.5-2.4); POTASSIUM 3.9 MMOL/L (3.5-5.1); SODIUM 143 MMOL/L (135-145); TOTAL CARBON DIOXIDE 28.8 MMOL/L (24-32); TOTAL PROTEIN 6.3 G/DL (6.4-8.2); eCRCL 72 ML/MIN; eGFR 75 ML/MIN
[2024-10-17] MEDS: pantoprazole 40mg Tablet.DR PO SCH (07:36)
[2024-10-17 10:00] VITALS: BP 97/52; PULSE 85; RESP 19; TEMP 98.1; O2SAT 94
[2024-10-17] MEDS ORDERED: nitroGLYCERIN 0.4mg SUBLingual tab SL PRN (11:10)
--- NOTE | 2024-10-17 20:04 | DISCHARGE SUMMARY ---
Discharge Summary Providers to CC ~ Discharge Summary Admission Diagnosis: Chest pain eval for ID Hospital Course DATE OF ADMISSION: 10/16/2024 DATE OF DISCHARGE: 10/17/2024 Discharge Diagnosis\Comment: Chest pain eval for ID, [id number] diabetes mellitus, hypothyroidism, GERD, hyperlipidemia, gastroparesis Operations\Procedures: None Consultants: None Complications: None Condition on DC: Unstable (Unknown the patient left AMA) Discharge Summary: I admitted Ms. Blair with the following HPI:This is a 49-year-old female who presents to ED with chief complaint of chest pain that began around noon. Patient was sitting on her couch watching TV and was planning to go to work when she developed chest pain that was substernal as 8/10 and radiating to her upper extremities bilaterally with paresthesias in her left hand. The patient is mildly short of breath with the chest pain denies any diaphoresis is nauseated. Note the patient had coffee a proximally 2 hours prior to onset of the chest pain-high sensitivity troponins x2 are at a level of for which greater than 50 the cutoff for normal sensitivity troponin. EKG was negative for any ST segment abnormalities questionable bundle-branch block in the anterior leads Echocardiogram is ordered and Lexiscan stress test- admitted to the ortho floor on strip tank tender. I evaluated the patient is on the morning of the and the patient is that is time was experiencing chest pain not as intense as that would brought her to the hospital I ordered nitroglycerin the and I informed the patient that the patient could have a stress test tomorrow morning as the radiotracer for the stress test is not available today I was informed approximately 30 minutes later that the patient wanted to leave AMA and the patient left AMA prior to receiving her echocardiogram and as per above did not receive her Lexiscan stress test. Patient has uncontrolled diabetes mellitus her hemoglobin A1c is 10.7 the patient's blood sugar last evening was 200 however this morning was 87 she was on the hyper and hypoglycemic protocol. Gen. No acute distress alert and oriented 4 Lungs clear to ascultation bilaterally, no wheezes rales or rhonchi appreciated Heart normal sinus rhythm no murmurs rubs or clicks noted Abdomen soft nontender bowel sounds are normoactive Lower extremities no clubbing cyanosis, nor edema appreciated bilaterally Note that the patient was not discharged she left AMA at 11:37 *Problems/Diagnosis: (1) Chest pain Status: Acute Total Time Spent on D/C: Up to 30 Minutes Date of Service: Oct 17, 2024 Billing Provider: ANTONI BOBO DO Common Visit Codes: [id number] INP/OBS CARE(HIGH) ANTONI BOBO DO Oct 17, 2024 20:04
== END 2024-10-17 11:37 | disposition left against medical advice (07) | DRG 203 ==
LOC: ER 13:50 → ED HOLD 15:34 → ORTHO 4S 19:07
PROVIDERS: ADMIT Family Medicine; ATTEND Family Medicine
DX: R07.89 Other chest pain (principal); E11.43 Type 2 diabetes mellitus with diabetic autonomic (poly)neuropathy; K31.84 Gastroparesis; E03.9 Hypothyroidism, unspecified; K21.9 Gastro-esophageal reflux disease without esophagitis; E78.5 Hyperlipidemia, unspecified; Z96.653 Presence of artificial knee joint, bilateral; G43.909 Migraine, unspecified, not intractable, without status migrainosus; M79.7 Fibromyalgia; E11.9 Type 2 diabetes mellitus without complications; Z53.29 Procedure and treatment not carried out because of patient's decision for other reasons; J45.909 Unspecified asthma, uncomplicated; Z82.49 Family history of ischemic heart disease and other diseases of the circulatory system; Z87.891 Personal history of nicotine dependence; Z79.84 Long term (current) use of oral hypoglycemic drugs; Z83.3 Family history of diabetes mellitus; Z88.1 Allergy status to other antibiotic agents; Z90.710 Acquired absence of both cervix and uterus
CPT/HCPCS: 36415; 71045; 80048; 80053; 81001; 82948; 83036; 83735; 83880; 84484; 85025; 87081; 93005; 96372; 99285; G0378; J1650; J1815

== ENCOUNTER 2025-02-23 14:38 | Emergency (ER) | payer MEDICAID ==
[~2025-02-23] VITALS: Ht 162.6 cm; Wt 118.6 kg
[~2025-02-23 14:38] MED LIST changes: +ATOG60TA PO; +ATOR-2 PO; +DOXY-224 PO; +DOXY1TAB3 PO; +DULO60CA65 PO; -FENO48TA15 PO; +FERR325T34; -FEXO-271 PO; +FEXO-404 PO; +FLUT1BLS16 INH; +FLUTICASONE; +GLUC3SPR5; +IBUP-1986 PO; +INSU100I39 SQ; -INSU100V9 SQ; +INSU200I4 SQ; +LISI10TA27 PO; -LURA60TA PO; +MEDR5TAB4 PO; -METF500T PO; -METH4TAB81 PO; -MOME13HF8 INH; +MONT-40 PO; +OLAN5TAB75; -ONDA-245 PO; -ONDA8TAB6 PO; +PROG200C11 PO; +RIZA10TA28 PO; -SUMA25TA35 PO; -TEMA15CA5 PO; -TRAZ-256 PO
[2025-02-23 14:44] VITALS: TEMP 97.3
[2025-02-23] MEDS ORDERED: IBUP-1986 PO (15:13)
[2025-02-23] MEDS ORDERED: AMOX-580 PO (15:13)
--- NOTE | 2025-02-23 15:13 | Physician Documentation ---
HPI ~ General Chief Complaint: Tooth Problem Stated Complaint: TOOTH PAIN Time Seen by MD: 14:52 Primary Medical Doctor: [facility] History of Present Illness HPI Comment This is a 50-year-old female who presents with three days of pain to left upper rear molar, patient reports no fever, difficulty breathing, difficulty swallowing, or facial swelling. Patient reports that she has a dentist appointment though it is some time out. Patient reports no other acute symptoms or concerns. Medication Reconciliation Allergies: Coded Allergies: cephalexin (Verified Allergy, Severe, rash, 02/23/25) chlorhexidine (Verified Allergy, Unknown, 02/23/25) promethazine (Verified Allergy, Unknown, 02/23/25) Uncoded Allergies: CLINDAMYCIN (Allergy, Severe, 07/03/22) throat swelling Scheduled Albuterol Sulfate (Ventolin Hfa), 2 PUFFS INH Q4HPRN, (Reported) Amox Tr/Potassium Clavulanate 875/125 MG (Augmentin 875/125 MG), 1 TAB PO Q12H Atogepant (Qulipta), 1 TAB PO DAILY, (Reported) Atorvastatin Calcium (Atorvastatin Calcium), 1 TAB PO DAILY, (Reported) Cyclobenzaprine* (Cyclobenzaprine*), 1 TAB PO TID Docusate Sodium (Colace), 1 TAB PO DAILY, (Reported) Doxycycline Hyclate (Doxycycline Hyclate), 1 CAP PO DAILY, (Reported) Doxylamine/Pyridoxine HCl (Diclegis Dr 10-10 mg Tablet), 2 TAB PO HS, (Reported) Duloxetine HCl (Duloxetine HCl), 2 CAP PO DAILY, (Reported) Fexofenadine Hcl* (Domonique*), 1 TABLET PO DAILY, (Reported) Fluticasone/Umeclidin/Vilanter (Trelegy Ellipta 200-62.5-25), 1 PUFFS INH DAILY, (Reported) Ibuprofen (Ibuprofen), 1 TAB PO TID, (Reported) Ibuprofen (Ibuprofen), 1 TAB PO Q8H Levothyroxine Sodium* (Synthroid*), 50 MCG PO DAILY, (Reported) Lidocaine (Lidoderm), 1 PATCH TOP DAILY Lisinopril (Lisinopril), 1 TAB PO DAILY, (Reported) Medroxyprogesterone Acet (Medroxyprogesterone Acetate), 1 TAB PO DAILY, (Reported) Omeprazole Magnesium (Prilosec Otc), 20 MG PO DAILY Pregabalin (Lyrica), 1 CAP PO TID, (Reported) Progesterone,Micronized (Progesterone), 1 CAP PO HS, (Reported) Rizatriptan Benzoate (Rizatriptan), 1 TAB PO PRN, (Reported) Sitagliptin Phosphate (Januvia), 1 TAB PO DAILY, (Reported) Scheduled PRN Dicyclomine Hcl* (Bentyl*), 2 CAP PO Q6H PRN for ABDOMINAL PAIN, (Reported) ONDANSETRON ODT 4mg tablet (Ondansetron Odt), 1 TABLET PO Q6H PRN for nausea/vomiting Miscellaneous Medications Ferrous Sulfate (Ferrous Sulfate), (Reported) Glucagon (Baqsimi), (Reported) Insulin Degludec (Tresiba Flextouch U-200), SQ, (Reported) Insulin Lispro (Admelog Solostar), SQ, (Reported) Montelukast Sodium (Montelukast Sodium), 1 TAB PO, (Reported) Olanzapine (Olanzapine), (Reported) [Fluticasone], 50 MCG, (Reported) Past Medical History Past Medical History: Migraine, Asthma, Diabetes, Fibromyalgia Past Surgical History: abdominal surgery, hysterectomy, orthopedic surgeries, other Other Past Surgical History: Breast Reduction Patient History: FH: diabetes mellitus MOTHER Maternal grandmother maternal grandfatheR FH: heart disease Maternal grandmother maternal grandfatheR Alcohol Use: Rarely Drug Use: none Lives with: Alone Lives In: Home Review of Systems ROS As stated above in the HPI, otherwise all systems are reviewed and negative. Physical Exam Vital Signs: Temperature: 97.3, Source: Temporal, Heart Rate: 82, Respiratory Rate: 18, BP: 134/73, Pulse Oximetry: 99, Weight: 118.640 Physical Exam VITALS: Reviewed and as above. GENERAL: Alert, nontoxic appearing, no apparent distress. HEENT: Facial swelling, left upper rear molar severe decay, gingiva at base mildly erythematous, no submandibular swelling, no elevation of the tongue, no drooling RESPIRATORY: No increased work of breathing, no respiratory distress, speaking in full clear sentences Progress Results/Orders Results/Orders Completed Orders - ROOSEVELT,PAVEL W SELF PAY REPRESENTATIVE Amox Tr/Potassium Clavulanate (Augmentin (02/23/25 15:15) Ketorolac Trometh 15mg/Ml Vial (Toradol (02/23/25 15:15) Medications Received in ER Medications (Trade) Dose Ordered Sig/Christiano Route PRN Reason Start Time Stop Time Status Last Admin Dose Admin (Augmentin 875-125mg tablet) 1 tab ONCE ONCE PO 02/23/25 15:15 02/23/25 15:16 DC 02/23/25 15:37 1 TAB (Toradol injection) 15 mg ONCE ONCE IM 02/23/25 15:15 02/23/25 15:16 DC 02/23/25 15:35 15 MG Vital Signs 02/23/25 02/23/25 02/23/25 14:44 15:35 15:49 Temp 97.3 Pulse 82 81 Resp 18 18 18 B/P (MAP) 134/73 134/78 Pulse Ox 99 97 Medical Decision Making Additional information obtaine: N/A Findings This well appearing 50-year-old female presented with dental pain to the left upper rear molar. Based on history and physical exam I have low clinical suspicion for peritonsillar abscess, uvulitis, deep tissue space infection of the head/neck, or impending airway compromise. There was no submandibular swelling or elevation of the tongue, the uvula was midline, patient is able to swallow fluids and secretion without difficulty, there is no increased work of breathing or noisy breathing. Based on presentation I am concerned for odontogenic infection and antibiotic treatment with Augmentin is indicated. Pain control with non-narcotic medications is appropriate at this time. Patient is otherwise well-appearing and appropriate for outpatient follow up, patient is to follow up with dentist. Patient provided home care instructions, return to care precautions, and follow up instructions which she verbalized understanding of. Differential Dx:Considerations: Include: Alveolar fracture, ANUG, Facial Cellulitis, Periapical abscess, Peridontal abscess, Pulpitis, Tooth avulsion, Tooth eruption, Tooth Fracture, Trigeminal neuralgia, Tooth subluxation, Other (Jacob's angina) Departure Time of Disposition: 15:11 Disposition: 01 HOME / SELF CARE / HOMELESS Impression: Primary Impression: Toothache Condition: Improved Discharge Instructions: Dental Pain Additional Instructions: Please take antibiotics as prescribed, please use the prescribed ibuprofen as needed for pain, you may additionally use Tylenol [id number] as directed by vpyr-yyu-[id number] packaging. Follow up with a dentist as soon as possible. Please follow up with your primary care provider in the next few days. Please return to the emergency department for any new or worsening concerning symptoms. Referrals: NO PRIMARY CARE PROVIDER (PCP) Prescriptions Ibuprofen (Ibuprofen) 800 Mg Tablet 1 TAB PO Q8H for pain for 10 Days, #30 TAB 0 Refills Prov: PAVEL ALBERT 02/23/25 Amox Tr/Potassium Clavulanate 875/125 MG (Augmentin 875/125 MG) 875 Mg-125 Mg Tablet 1 TAB PO Q12H for 10 Days, #20 TAB Prov: PAVEL ALBERT 02/23/25 Education Educated: Patient Educated regarding: diagnosis, treatment, prognosis, need for follow up Signature Scribe Signature: No scribe Attestation: The note accurately reflects work and decisions made by me.TATY Gutiérrez 02/23/25 21:05 PAVEL ALBERT Feb 23, 2025 15:13
[2025-02-23] MEDS: ketorolac trometh 15mg/ml vial 15 MG/ML ML IM ONE (15:35)
[2025-02-23] MEDS: amox tr/potassium clavulanate 875/125mg TAB PO ONE (15:37)
[2025-02-23 15:49] VITALS: BP 134/78; PULSE 81; RESP 18; O2SAT 97
== END 2025-02-23 15:51 | disposition home or self-care (01) ==
LOC: ER 14:38
DX: K08.89 Other specified disorders of teeth and supporting structures (principal); J45.909 Unspecified asthma, uncomplicated; E11.9 Type 2 diabetes mellitus without complications; G43.909 Migraine, unspecified, not intractable, without status migrainosus; M79.7 Fibromyalgia; Z88.1 Allergy status to other antibiotic agents; Z90.710 Acquired absence of both cervix and uterus; Z79.899 Other long term (current) drug therapy; Z60.2 Problems related to living alone
CPT/HCPCS: 96372; 99283; J1885

== ENCOUNTER 2025-03-11 16:53 | Emergency (ER) | payer MEDICAID, OTHER ==
[~2025-03-11] VITALS: Ht 162.6 cm; Wt 119.0 kg
[2025-03-11 17:18] VITALS: BP 115/48; PULSE 103; O2SAT 97
--- NOTE | 2025-03-11 17:34 | Physician Documentation ---
History of Present Illness ~ Chief Complaint: Shoulder pain Stated Complaint: FALL Time Seen by MD: 18:07 Primary Medical Doctor: [facility] HPI MSE: Patient is a pleasant 50-year-old female that presents to the emergency department for evaluation of left shoulder pain after sustaining a fall at work today patient did not strike her head patient landed on her left shoulder patient is having difficulty with range of motion moving her shoulder at this time. Patient reports significant pain in the shoulder and left arm. Patient denies any other symptoms at this time. Tetanus within 5 years?: Yes Medication Reconciliation Allergies: Coded Allergies: cephalexin (Verified Allergy, Severe, rash, 03/11/25) chlorhexidine (Verified Allergy, Unknown, 03/11/25) promethazine (Verified Allergy, Unknown, 03/11/25) Uncoded Allergies: CLINDAMYCIN (Allergy, Severe, 07/03/22) throat swelling Scheduled Albuterol Sulfate (Ventolin Hfa), 2 PUFFS INH Q4HPRN, (Reported) Atogepant (Qulipta), 1 TAB PO DAILY, (Reported) Atorvastatin Calcium (Atorvastatin Calcium), 1 TAB PO DAILY, (Reported) Cyclobenzaprine* (Cyclobenzaprine*), 1 TAB PO TID Docusate Sodium (Colace), 1 TAB PO DAILY, (Reported) Doxycycline Hyclate (Doxycycline Hyclate), 1 CAP PO DAILY, (Reported) Doxylamine/Pyridoxine HCl (Diclegis Dr 10-10 mg Tablet), 2 TAB PO HS, (Reported) Duloxetine HCl (Duloxetine HCl), 2 CAP PO DAILY, (Reported) Fexofenadine Hcl* (Domonique*), 1 TABLET PO DAILY, (Reported) Fluticasone/Umeclidin/Vilanter (Trelegy Ellipta 200-62.5-25), 1 PUFFS INH DAILY, (Reported) Ibuprofen (Ibuprofen), 1 TAB PO TID, (Reported) Ibuprofen (Ibuprofen), 1 TAB PO Q8H Levothyroxine Sodium* (Synthroid*), 50 MCG PO DAILY, (Reported) Lidocaine (Lidoderm), 1 PATCH TOP DAILY Lisinopril (Lisinopril), 1 TAB PO DAILY, (Reported) Medroxyprogesterone Acet (Medroxyprogesterone Acetate), 1 TAB PO DAILY, (Reported) Omeprazole Magnesium (Prilosec Otc), 20 MG PO DAILY Pregabalin (Lyrica), 1 CAP PO TID, (Reported) Progesterone,Micronized (Progesterone), 1 CAP PO HS, (Reported) Rizatriptan Benzoate (Rizatriptan), 1 TAB PO PRN, (Reported) Sitagliptin Phosphate (Januvia), 1 TAB PO DAILY, (Reported) Scheduled PRN Dicyclomine Hcl* (Bentyl*), 2 CAP PO Q6H PRN for ABDOMINAL PAIN, (Reported) ONDANSETRON ODT 4mg tablet (Ondansetron Odt), 1 TABLET PO Q6H PRN for nausea/vomiting Miscellaneous Medications Ferrous Sulfate (Ferrous Sulfate), (Reported) Glucagon (Baqsimi), (Reported) Insulin Degludec (Tresiba Flextouch U-200), SQ, (Reported) Insulin Lispro (Admelog Solostar), SQ, (Reported) Montelukast Sodium (Montelukast Sodium), 1 TAB PO, (Reported) Olanzapine (Olanzapine), (Reported) [Fluticasone], 50 MCG, (Reported) Discontinued Medications Amox Tr/Potassium Clavulanate 875/125 MG (Augmentin 875/125 MG), 1 TAB PO Q12H Discontinued Reason: Auto Discontinued Past Medical History Past Medical History: Migraine, Asthma, Diabetes, Fibromyalgia Past Surgical History: abdominal surgery, hysterectomy, orthopedic surgeries, other Other Past Surgical History: Breast Reduction Patient History: FH: diabetes mellitus MOTHER Maternal grandmother maternal grandfatheR FH: heart disease Maternal grandmother maternal grandfatheR Alcohol Use: Rarely Drug Use: none Lives with: Alone Lives In: Home Review of Systems ROS As stated above in the HPI, otherwise all systems are reviewed and negative. Physical Exam Vital Signs: Temperature: 97.2, Source: Temporal, Heart Rate: 103, Respiratory Rate: 16, BP: 115/48, Pulse Oximetry: 97, Weight: 119.000 Oxygen Flow Rate: 0 Physical Exam VITALS: Reviewed and as above. GENERAL: Alert, no apparent distress. HEENT: Normocephalic, atraumatic, PERRL, EOMI, dry mucosa, no erythema RESPIRATORY: Lungs clear, normal breath sounds, no respiratory distress. CHEST: No accessory muscle use, no retractions CV: Regular rate, rhythm, no edema, no murmur, No: JVD GI: Soft, non-tender, bowels sounds present, no rebound, guarding, or rigidity BACK: No CVA tenderness, or swelling MUSCULOSKELETAL No deformities, no edema, significant pain with range of motion to the left shoulder during examination. SKIN: Warm and dry, no rash NEURO: Oriented x4, No motor or sensory deficit PSYCH: Normal mood and affect, no agitation Progress Results/Orders Results/Orders Orders - CANDICE,PRIMO A HEAVY DUTY CUSTODIAN Shoulder, Complete (Min 2 Vws) (03/11/25 17:36) General Nursing Order (03/11/25 19:03) Completed Orders - CANDICE,PRIMO A HEAVY DUTY CUSTODIAN Shoulder, Complete (Min 2 Vws) (03/11/25 17:36) Ketorolac Trometh 30mg/Ml Vial (Toradol (03/11/25 19:05) Acetaminophen 325mg Tablet (Tylenol Tabl (03/11/25 19:05) Vital Signs 03/11/25 17:18 Temp 97.2 Pulse 103 Resp 16 B/P (MAP) 115/48 Pulse Ox 97 O2 Flow Rate 0 Medical Decision Making Additional information obtaine: other Findings Medical Decision-Making (Discharge Note): Radiologic imaging (plain radiographs) was negative for fracture, dislocation, or other significant injury. Physical examination is negative for any significant injury, fracture, or disl ocation at this time. No neurovascular compromise noted. The patient is diagnosed with a simple, stable musculoskeletal injury. No evidence of occult injury requiring advanced imaging at this time per clinical guidelines. Pain will be managed with acetaminophen (Tylenol) or ibuprofen as needed for discomfort. Opioid analgesics are not indicated for this presentation. The patient will be placed in a sling for comfort and advised to rest, apply ice, and elevate the affected area as needed. These conservative measures are supported for acute musculoskeletal injuries. Patient instructed to follow up with their primary care provider for reassessment and ongoing management. Return to the emergency department is advised for any worsening or recurrent symptoms, increased pain, or new concerns. No routine orthopedic or subspecialty follow-up is required unless symptoms persist or worsen, consistent with evidence supporting direct discharge for simple stable injuries. Discharge instructions reviewed with the patient, including medication dosing, activity modification, and signs/symptoms warranting return evaluation. Summary: The patient is safe for discharge with conservative management, clear follow-up instructions, and no evidence of significant injury on imaging or exam. All care decisions are consistent with current best practices and published guidelines. Differential Dx:Considerations: Include: AC separation, Adhesive capsulitis, arthritis, Bicipital tendonitis, Calcific tendonitis, Cervical disc disease, Contusion, Dislocation, Fracture: Humerus, Fracture: Scapula, Fracture: Clavicle, Gallbladder Disease, Hematoma, Impingement syndrome, Myocardial infarction, Neurovascular Injury, Rotator cuff injury, SC dislocation, Sprain, Subacromial bursitis, other Departure Disposition: HOME / SELF CARE / HOMELESS Impression: Primary Impression: Shoulder pain Additional Impressions: Musculoskeletal pain of extremity Musculoskeletal pain of left upper extremity Condition: Stable Discharge Instructions: Shoulder Pain, [id number] Additional Instructions: You have been evaluated for musculoskeletal pain and/or injury. Your exam and imaging did not show any serious injury, fracture, or dislocation. Pain Management: You may use acetaminophen (Tylenol) or ibuprofen as needed for pain, following package instructions. Do not exceed the recommended dose. If you have any allergies or medical conditions that prevent you from taking these medications, please discuss alternatives with your doctor. Activity: It is important to stay active and continue your usual daily activities as much as possible, even if you have some discomfort. Avoid bed rest, as this can slow your recovery. Comfort Measures: You may use a sling for comfort if recommended, and apply ice to the affected area for 15-20 minutes every few hours as needed. Elevate the area if possible to help with swelling. Reassurance: Most musculoskeletal injuries and episodes of low back pain improve over time. There is a very high likelihood that there is no serious condition causing your pain. When to Seek Help: Return to the emergency department or contact your doctor if you experience worsening pain, new symptoms (such as numbness, weakness, or loss of bladder/bowel control), or if your pain does not improve after a few weeks. Follow-Up: Schedule a follow-up visit with your primary care provider for reassessment and ongoing care. If your pain does not improve within 2 months, or if you have risk factors for chronic pain, your doctor may recommend supervised exercise or physical therapy. Other Tips: You may try a heating pad for comfort, but use caution to avoid castaneda. Passive treatments like massage or acupuncture are generally not recommended unless other treatments have not helped. If you have any questions or concerns, please contact your healthcare provider. Referrals: NO PRIMARY CARE PROVIDER (PCP) Education Educated: Patient Educated regarding: diagnosis, need for follow up Signature Scribe Signature: A Attestation: Scribed for Primo Harvey by TATY Matute . 03/11/25 19:35 PRIMO HARVEY Mar 11, 2025 17:34
--- NOTE | 2025-03-11 18:05 | RADIOLOGY REPORT ---
CLINICAL INDICATION: PAIN TECHNIQUE: SHOULDERCMDI SHOULDER, COMPLETE (MIN 2 VWS), left Comparison: None FINDINGS/IMPRESSION: : There is no evidence of acute fracture or dislocation. Soft tissues are unremarkable.
[2025-03-11 19:37] VITALS: TEMP 97.2
[2025-03-11 19:49] VITALS: RESP 18
[2025-03-11] MEDS: ketorolac trometh 30MG/ML vial 30 MG/ML VIAL IM ONE (19:49)
== END 2025-03-11 20:02 | disposition home or self-care (01) ==
LOC: ER 16:53
DX: M25.512 Pain in left shoulder (principal); E11.9 Type 2 diabetes mellitus without complications; J45.909 Unspecified asthma, uncomplicated; M79.7 Fibromyalgia; G43.909 Migraine, unspecified, not intractable, without status migrainosus; Z90.710 Acquired absence of both cervix and uterus; Z88.8 Allergy status to other drugs, medicaments and biological substances; Z88.1 Allergy status to other antibiotic agents; Z79.899 Other long term (current) drug therapy
CPT/HCPCS: 73030; 96372; 99283; J1885; J7030; A4565

== ENCOUNTER 2025-03-28 14:12 | Emergency (ER) | payer MEDICAID, OTHER ==
[~2025-03-28] VITALS: Ht 162.6 cm; Wt 128.0 kg
[2025-03-28 14:33] VITALS: TEMP 98.8
--- NOTE | 2025-03-28 14:39 | ELECTROCARDIOGRAPH REPORT ---
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 Ankita Allen Measurements Intervals [place] Rate: 94 P: 49 GA: 146 QRS: 20 QRSD: 95 T: 46 QT: 367 QTc: 459 Interpretive Statements Atrial-paced complexes Low voltage, precordial leads Electronically Signed On 03-28-2025 17:15:[address] Ankita Allen Please click the below link to view image of tracing.
--- NOTE | 2025-03-28 14:54 | RADIOLOGY REPORT ---
CHEST RADIOGRAPH Indication: CP Technique: Single frontal view of the chest was obtained COMPARISON: DI CHEST,SINGLE VIEW on DOS: 10/16/24, DI CHEST,SINGLE VIEW on DOS: 12/21/23, CHEST,SINGLE VIEW on DOS: 10/04/21 FINDINGS: Lines and Tubes: None Lungs: Clear Pleura: No effusion. No pneumothorax. Cardiomediastinal contours: Unremarkable Bones: Unremarkable IMPRESSION: No acute disease.
[2025-03-28 14:58] LABS: MEAN PLATELET VOLUME 6.3 FL (7.4-10.4); RED CELL DISTRIBUTION WIDTH 15.1 % (11.5-14.5)
[2025-03-28 15:29] LABS: CREATININE 0.83 MG/DL (0.40-0.90); PRO BRAIN NATRIURETIC PEPTIDE < 30 PG/ML (0-125); TOTAL CARBON DIOXIDE 29.7 MMOL/L (24-32); eCRCL 69 ML/MIN; eGFR 72 ML/MIN
--- NOTE | 2025-03-28 15:48 | Physician Documentation ---
History of Present Illness ~ Chief Complaint: Chest Pain Stated Complaint: CHEST PAIN Time Seen by MD: 15:37 Primary Medical Doctor: [facility] Mode of Arrival: EMS, Stretcher HPI 50-year-old female presents to the ED with a complaint of acute onset chest pain for the last 2 hours states it is reproducible with inspiration. 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 In addition she is type 2 diabetic and has a gastric stimulator which addresses her diagnosis of gastroparesis line new line she also has a history of asthma and COPD. She denies any increased shortness of breath today states that she does have some right arm pain in addition to chest pain Tetanus within 5 Years?: Yes Allergies: Coded Allergies: cephalexin (Verified Allergy, Severe, rash, 03/11/25) chlorhexidine (Verified Allergy, Unknown, 03/11/25) promethazine (Verified Allergy, Unknown, 03/11/25) Uncoded Allergies: CLINDAMYCIN (Allergy, Severe, 07/03/22) throat swelling Active Prescriptions See Medication Reconciliation Form. Medication Reconciliation Scheduled Albuterol Sulfate (Ventolin Hfa), 2 PUFFS INH Q4HPRN, (Reported) Atogepant (Qulipta), 1 TAB PO DAILY, (Reported) Atorvastatin Calcium (Atorvastatin Calcium), 1 TAB PO DAILY, (Reported) Cyclobenzaprine* (Cyclobenzaprine*), 1 TAB PO TID Docusate Sodium (Colace), 1 TAB PO DAILY, (Reported) Doxycycline Hyclate (Doxycycline Hyclate), 1 CAP PO DAILY, (Reported) Doxylamine/Pyridoxine HCl (Diclegis Dr 10-10 mg Tablet), 2 TAB PO HS, (Reported) Duloxetine HCl (Duloxetine HCl), 2 CAP PO DAILY, (Reported) Fexofenadine Hcl* (Domonique*), 1 TABLET PO DAILY, (Reported) Fluticasone/Umeclidin/Vilanter (Trelegy Ellipta 200-62.5-25), 1 PUFFS INH DAILY, (Reported) Ibuprofen (Ibuprofen), 1 TAB PO TID, (Reported) Ibuprofen (Ibuprofen), 1 TAB PO Q8H Levothyroxine Sodium* (Synthroid*), 50 MCG PO DAILY, (Reported) Lidocaine (Lidoderm), 1 PATCH TOP DAILY Lisinopril (Lisinopril), 1 TAB PO DAILY, (Reported) Medroxyprogesterone Acet (Medroxyprogesterone Acetate), 1 TAB PO DAILY, (Reported) Omeprazole Magnesium (Prilosec Otc), 20 MG PO DAILY Pregabalin (Lyrica), 1 CAP PO TID, (Reported) Progesterone,Micronized (Progesterone), 1 CAP PO HS, (Reported) Rizatriptan Benzoate (Rizatriptan), 1 TAB PO PRN, (Reported) Sitagliptin Phosphate (Januvia), 1 TAB PO DAILY, (Reported) Scheduled PRN Dicyclomine Hcl* (Bentyl*), 2 CAP PO Q6H PRN for ABDOMINAL PAIN, (Reported) ONDANSETRON ODT 4mg tablet (Ondansetron Odt), 1 TABLET PO Q6H PRN for nausea/vomiting Miscellaneous Medications Ferrous Sulfate (Ferrous Sulfate), (Reported) Glucagon (Baqsimi), (Reported) Insulin Degludec (Tresiba Flextouch U-200), SQ, (Reported) Insulin Lispro (Admelog Solostar), SQ, (Reported) Montelukast Sodium (Montelukast Sodium), 1 TAB PO, (Reported) Olanzapine (Olanzapine), (Reported) [Fluticasone], 50 MCG, (Reported) Past Medical History Past Medical History: Migraine, Asthma, Diabetes, Fibromyalgia Past Surgical History: abdominal surgery, hysterectomy, orthopedic surgeries, other Other Past Surgical History: Breast Reduction Patient History: FH: diabetes mellitus MOTHER Maternal grandmother maternal grandfatheR FH: heart disease Maternal grandmother maternal grandfatheR Alcohol Use: Rarely Drug Use: none Lives with: Alone Lives In: Home Review of Systems All Other Systems at this time: Reviewed and Negative ROS As stated above in the HPI, otherwise all systems are reviewed and negative. Physical Exam Vital Signs: Temperature: 98.8, Source: Oral, Heart Rate: 94, Respiratory Rate: 16, BP: 113/61, Pulse Oximetry: 97, Weight: 128.000 Oxygen Flow Rate: 0 Physical Exam General: Alert, no apparent distress. HEENT: PERRL, EOMI, no injection, moist mucous membranes. Neck: Full range of motion. Respiratory: Lungs clear, no respiratory distress. Chest: No accessory muscle use. Cardiovascular: Regular rate and rhythm, no murmurs. Gastrointestinal: Soft, nontender, nondistended. Bowels sounds present. Extremities: Normal range of motion, no deformity. Neurologic: Oriented x4. Psychiatric: Normal mood and affect. Skin: Normal color, warm and dry. No edema, no ecchymosis. Progress Results/Orders Results/Orders Completed Orders - ENMANUEL SIMON NP Ua W/Microscopic, Cult If Ind (03/28/25 15:00) Ketorolac Trometh 30mg/Ml Vial (Toradol (03/28/25 16:25) Medications Received in ER Medications (Trade) Dose Ordered Sig/Christiano Route PRN Reason Start Time Stop Time Status Last Admin Dose Admin (Toradol inj. 30mg/ml) 30 mg ONCE ONCE IM 03/28/25 16:25 03/28/25 16:27 DC 03/28/25 16:33 30 MG Vital Signs 03/28/25 03/28/25 03/28/25 03/28/25 14:33 14:47 14:53 15:59 Temp 98.8 Pulse 97 94 100 Resp 16 16 16 16 B/P (MAP) 110/58 113/61 (78) 111/60 (77) Pulse Ox 97 97 95 O2 Flow Rate 0 0 0 03/28/25 03/28/25 16:33 16:35 Pulse 100 Resp 16 16 B/P (MAP) 97/55 (69) Pulse Ox 94 O2 Flow Rate 0 Laboratory Tests Test 03/28/25 14:51 03/28/25 15:00 03/28/25 16:25 White Blood Count 11.3 H Red Blood Count 4.14 L Hemoglobin 12.5 Hematocrit 37.2 Mean Corpuscular Volume 89.7 Mean Corpuscular Hemoglobin 30.2 Mean Corpuscular Hemoglobin Concent 33.6 Red Cell Distribution Width 15.1 H Platelet Count 405 Mean Platelet Volume 6.3 L Neutrophils (%) (Auto) 69.1 Lymphocytes (%) (Auto) 22.9 Monocytes (%) (Auto) 3.8 Eosinophils (%) (Auto) 3.0 Basophils (%) (Auto) 1.2 H Neutrophils # (Auto) 7.8 H Lymphocytes # (Auto) 2.6 Monocytes # (Auto) 0.4 Eosinophils # (Auto) 0.3 Basophils # (Auto) 0.1 CBC Comment Sodium Level 142 Potassium Level 3.9 Chloride Level 105 Carbon Dioxide Level 29.7 Anion Gap 7 L Blood Urea Nitrogen 12 Creatinine 0.83 Estimated GFR/1.73 m2 72 BUN/Creatinine Ratio 14.5 Glucose Level 160 H Calcium Level 8.3 L Troponin I High Sensitivity 4 < 4 L Pro-B-Type Natriuretic Peptide < 30 Albumin 3.0 L Chemistry Comments Urine Specimen Description Non-specified Urine Color Yellow Urine Clarity Slightly cloudy Urine pH 7.0 Urine Specific [place] 1.020 Urine Protein Negative Urine Glucose (UA) Negative Urine Ketones Negative Urine Occult Blood Negative Urine Nitrite Negative Urine Bilirubin Negative Urine Urobilinogen 0.2 Urine Leukocyte Esterase Negative Urine RBC 0-2 Urine WBC 0-4 Urine Squamous Epithelial Cells Many Urine Transitional Epithelial Cells Few Urine Bacteria Few Urine Culture Indicated Not ind Volume Urine Centrifuged 10 ml Urine Comment Troponin I High Sens Percent Delta Troponin I Hi Sens Absolute Change Medical Decision Making Additional information obtaine: old records Findings Through laboratory values EKG and x-ray I have essentially ruled out any signs of cardiac events. Per my interpretation of her EKG normal sinus rhythm with no axis deviation or ST-elevation X-ray showed no signs of infiltrate opacities or effusions. Per my interpretation He had discussed this with the patient that I could not find an explanation for her chest pain. She states that the Toradol did not help her pain. I did offer a GI cocktail but she declined. Do not see a reason to pursue CT imaging as she does not show any signs that would indicate pulmonary embolism Going to discharge this patient for outpatient therapy Differential Dx:Considerations: Include: Chest wall contusion, Flail chest, Myocardial contusion, Pneumothorax, Pulmonary contusion, Rib fracture, Renal con tusion, Splenic fracture, Tension pneumothorax, Other Departure Disposition: HOME / SELF CARE / HOMELESS Impression: Primary Impression: Chest wall pain Ruled Out: Nausea & vomiting Condition: Stable Discharge Instructions: Nonspecific Chest Pain, Adult, Chest Wall Pain Referrals: NO PRIMARY CARE PROVIDER (PCP) Signature Scribe Signature: g Attestation: Scribed for Enmanuel Simon Teacher Emotionally Impaired by Enmanuel Villalpando NP . 03/28/25 15:48 ENMANUEL SIMON NP Mar 28, 2025 15:48
[2025-03-28 16:13] LABS: LEUKOCYTE ESTERASE ,URINE NEGATIVE (Neg); NITRITES, URINE NEGATIVE (Neg); OCCULT BLOOD,URINE NEGATIVE (Neg)
[2025-03-28 16:19] LABS: UA COLLECTION TYPE NON-SPECIFIED
[2025-03-28 16:23] LABS: SQUAMOUS EPITHELIAL CELL,UR MANY /LPF (FEW)
[2025-03-28] MEDS: ketorolac trometh 30MG/ML vial 30 MG/ML VIAL IM ONE (16:33)
[2025-03-28 17:24] VITALS: BP 109/67; PULSE 95; RESP 16; O2SAT 95
== END 2025-03-28 17:25 | disposition home or self-care (01) ==
LOC: ER 14:12
DX: R07.89 Other chest pain (principal); G43.909 Migraine, unspecified, not intractable, without status migrainosus; I25.2 Old myocardial infarction; E11.43 Type 2 diabetes mellitus with diabetic autonomic (poly)neuropathy; J44.9 Chronic obstructive pulmonary disease, unspecified; M79.7 Fibromyalgia; Z88.1 Allergy status to other antibiotic agents; Z88.8 Allergy status to other drugs, medicaments and biological substances; Z90.710 Acquired absence of both cervix and uterus; Z79.899 Other long term (current) drug therapy; Z95.0 Presence of cardiac pacemaker; Z79.1 Long term (current) use of non-steroidal anti-inflammatories (NSAID); Z79.84 Long term (current) use of oral hypoglycemic drugs
CPT/HCPCS: 36415; 71045; 80048; 81001; 83880; 84484; 85025; 93005; 96372; 99285; J1885